=== PATIENT | female | born 1965 | race African-American/Black ===

== ENCOUNTER → 2017-02-14 | Outpatient (CLI) | payer OTHER ==
[~2017-02-14] MED LIST: BENADRYL25 MG PO; LISINOPRIL5 MG PO; NORCO 5-325 TA1 EACH PO; PENICILLIN VK500 MG PO
--- NOTE | ~2017-02-14 | EKG ---
[place] [address] [facility] [place] [address] ELECTROCARDIOGRAM REPORT Name: HEMANTH MORRIS Room #: REG ROBBI Rao#: [id number] Admission: 02/14/17 Attend Phys: Gala Kern DNP Discharge: Date of : 69 Report #: [id number] THIS REPORT FOR: //name// [facility] Test Date: 2017-02-14 Test Time: 10:05:29 Pat Name: HEMANTH MORRIS Department: Room: Gender: F [employer] Manager: Mert GUDINO : 1965 Requested By: Gala Kern Order Number: [id number] MD: Luis Enrique Young Measurements Intervals [place] Rate: 96 P: 57 CO: 125 QRS: 17 QRSD: 86 T: -10 QT: 373 QTc: 472 Interpretive Statements Sinus rhythm Borderline repolarization abnormality No previous ECG available for comparison Electronically Signed On 02-14-2017 14:40:21 CDT by Luis Enrique Young [email or web address] <ELECTRONICALLY SIGNED> By: Luis Enrique Young MD 02/14/17 1440 1005 1005 MD CONNIE Quinn
== END ==
LOC: CV 09:41
DX: R07.9 Chest pain, unspecified (principal)

== ENCOUNTER 2018-06-01 13:05 | Emergency (ER) | payer OTHER ==
[~2018-06-01] VITALS: Ht 160 cm; Wt 102.1 kg
[2018-06-01 14:23] VITALS: BP 178/119
== END 2018-06-01 14:33 | disposition home or self-care (01) ==
LOC: ER 13:05
DX: S61.012A Laceration without foreign body of left thumb without damage to nail, initial encounter (principal); I10 Essential (primary) hypertension; Z88.2 Allergy status to sulfonamides; W26.0XXA Contact with knife, initial encounter; Y92.009 Unspecified place in unspecified non-institutional (private) residence as the place of occurrence of the external cause; Y93.G1 Activity, food preparation and clean up; Y99.8 Other external cause status

== ENCOUNTER 2018-12-31 20:19 | Emergency (ER) | payer OTHER ==
[~2018-12-31] VITALS: Ht 160 cm; Wt 102.1 kg
[2018-12-31] MEDS ORDERED: OMEPRAZOLE40 MG PO (20:45)
[2018-12-31] MEDS ORDERED: NORVASC5 MG PO (20:45)
[2018-12-31 21:08] LABS: URINE BILIRUBIN NEGATIVE (Negative); URINE BLOOD NEGATIVE (Negative); URINE CLARITY CLEAR; URINE COLOR YELLOW; URINE GLUCOSE-RANDOM* NEGATIVE (Negative); URINE KETONES NEGATIVE (Negative); URINE LEUKOCYTES-REFLEX NEGATIVE (Negative); URINE NITRITE-REFLEX NEGATIVE (Negative); URINE PROTEIN (DIPSTICK) NEGATIVE (Negative); URINE SPECIFIC GRAVITY 1.025 (1.005-1.035); URINE UROBILINOGEN 0.2 E.U./dl (0.2-1.0)
[2018-12-31 21:38] VITALS: BP 202/103
== END 2018-12-31 21:41 | disposition left against medical advice (07) ==
LOC: ER 20:19
PROVIDERS: Emergency Medicine
DX: Z53.21 Procedure and treatment not carried out due to patient leaving prior to being seen by health care provider (principal)

== ENCOUNTER → 2019-03-04 | Outpatient (CLI) | payer OTHER ==
[~2019-03-04] MED LIST changes: +NORVASC5 MG PO; +OMEPRAZOLE40 MG PO
== END ==
LOC: RAD 09:48 → ULTRA 09:48
DX: N63.20 Unspecified lump in the left breast, unspecified quadrant (principal)

== ENCOUNTER → 2019-06-10 | Outpatient (CLI) | payer OTHER | LOC: RAD 10:25 | DX: M47.816 Spondylosis without myelopathy or radiculopathy, lumbar region (principal); Z88.2 Allergy status to sulfonamides ==

== ENCOUNTER → 2019-06-24 | Outpatient (CLI) | payer OTHER | LOC: MRI 08:19 | DX: M40.46 Postural lordosis, lumbar region (principal); M51.36 Other intervertebral disc degeneration, lumbar region; M51.34 Other intervertebral disc degeneration, thoracic region; M51.44 Schmorl's nodes, thoracic region; I10 Essential (primary) hypertension; M12.88 Other specific arthropathies, not elsewhere classified, other specified site ==

== ENCOUNTER 2019-09-24 09:22 | Emergency (ER) | payer BC, OTHER ==
[~2019-09-24] VITALS: Ht 160 cm; Wt 102.1 kg
[2019-09-24 09:23] VITALS: BP 204/116
--- NOTE | 2019-09-24 17:26 | EKG ---
[place] [address] [facility] [place] [address] ELECTROCARDIOGRAM REPORT Name: HEMANTH MORRIS [facility] [id number] Admission: 09/24/19 Attend Phys: Discharge: 09/24/19 Date of : 69 Report #: [id number] THIS REPORT FOR: //name// [facility] ED Test Date: 2019-09-24 Test Time: 09:39:11 Pat Name: HEMANTH MORRIS Department: Room: Gender: F Cook Box Filler: PARI : 1965 Requested By: Raymundo Downey Order Number: [id number] MD: Luis Enrique Young Measurements Intervals [place] Rate: 88 P: 47 MS: 127 QRS: 16 QRSD: 91 T: 7 QT: 421 QTc: 510 Interpretive Statements Sinus rhythm Probable left atrial enlargement Compared to ECG 02/14/2017 10:05:29 Electronically Signed On 09-24-2019 17:25:57 [employer]ING [employer]PENTER by Luis Enrique Young [email or web address] <ELECTRONICALLY SIGNED> By: Luis Enrique Young MD 09/24/19 1725 0939 09 MD CONNIE Quinn
== END 2019-09-24 10:17 | disposition home or self-care (01) ==
LOC: ER 09:22
DX: S09.8XXA Other specified injuries of head, initial encounter (principal); I10 Essential (primary) hypertension; Z88.2 Allergy status to sulfonamides; W18.39XA Other fall on same level, initial encounter; Y92.89 Other specified places as the place of occurrence of the external cause; Y93.89 Activity, other specified; Y99.8 Other external cause status

== ENCOUNTER → 2020-12-30 | Outpatient (CLI) | payer BC, OTHER | LOC: ULTRA 08:11 | PROVIDERS: ATTEND Family Medicine | DX: N83.202 Unspecified ovarian cyst, left side (principal); N95.0 Postmenopausal bleeding ==

== ENCOUNTER 2021-03-13 09:41 | Emergency (ER) | payer BC, OTHER ==
[~2021-03-13] VITALS: Ht 160 cm; Wt 95.3 kg
[2021-03-13] MEDS ORDERED: METFORMIN HCL500 M3 PO (09:50)
[2021-03-13] MEDS ORDERED: DOXYCYCLINE 10100 MG PO (10:17)
[2021-03-13 12:35] VITALS: BP 177/97
== END 2021-03-13 12:35 | disposition home or self-care (01) ==
LOC: ER 09:41
DX: S20.162A Insect bite (nonvenomous) of breast, left breast, initial encounter (principal); I10 Essential (primary) hypertension; N61.0 Mastitis without abscess; Z79.84 Long term (current) use of oral hypoglycemic drugs; Z79.891 Long term (current) use of opiate analgesic; Z88.2 Allergy status to sulfonamides; Z72.89 Other problems related to lifestyle; W57.XXXA Bitten or stung by nonvenomous insect and other nonvenomous arthropods, initial encounter; Y93.89 Activity, other specified; Y92.89 Other specified places as the place of occurrence of the external cause; Y99.8 Other external cause status

== ENCOUNTER 2021-03-27 21:11 | Inpatient (IN) | payer BC, OTHER ==
[~2021-03-27] VITALS: Ht 160 cm; Wt 102.1 kg
--- NOTE | ~2021-03-27 | EMS ---
[facility] [address] [place] [address] EMS Patient Care Report Name: HEMANTH MORRIS Room #: REG LADARIUS Yeh#: [id number] Admission: 03/27/21 Attend Phys: Discharge: Date of : 69 Report #: [id number] THIS REPORT FOR: //name// Report Transmitted: 03/27/2021 20:52 EMS Care Summary [facility] MED-ACT Incident 189 @ 03/27/2021 20:37 Incident Location [address] [place] [address] Patient HEMANTH OMRRIS Female, 55 Years 1965 Patient Address [address] [place] [id number] Patient History Hypertension (HTN), Patient Allergies No known allergies, Patient Medications None Reported, Chief Complaint Headache Disposition Transported No Lights/[place] Dispatch Reason Stroke/CVA Transported To [facility] Narrative Pt. states that she was on her way to the hospital for a headache and nausea when she started to develop blurred vision and numbness in her extremities. She was able to pull worker and call for help. She states that her symptoms started around 04:00 hrs this morning with a headache that made her nauseated. [facility] [address] [place] [address] EMS Patient Care Report Name: HEMANTH MORRIS Room #: REG LADARIUS Yeh#: [id number] Admission: 03/27/21 Attend Phys: Discharge: Date of : 69 Report #: [id number] She had a similar problem a few days ago where she thought she may have COVID. She was able to get tested and had a negative result. On her way to the ED this evening is when she started to develop numbness on the left side of her face, left arm, and right foot. She has a hx of hypertension. She denies any recent changes in her medications. She also denies fever, chest pain, dyspnea, vomiting, migraine hx. She has no hx of CVA. No other complaints noted. Arrived to find the pt. seated in the swing driver's seat of her car. She was alert and able to step out of the car and sit on the cot without assistance. Cinn. was inconclusive. Pt. has subjective drift of the left arm but equal rug dyer and face. Her speech was normal. Refer to the exam section for other physical findings. T(x)- monitoring only Outcome: Pt.'s left arm was noted to slip off the cot on occasion. The pt. was alerted to her arm where she was able to raise it up and place it back on the hand rail. No other changes were noted in the pt's condition upon arrival at [place]. Initial Vitals @20:53P: 101,BP: 189/92,SpO2: 98, @21:05P: 94,BP: 163/74,SpO2: 97, @20:53P: 100,SpO2: 98, @20:51P: 103,R: 16,BP: 187/87,Pain: 4/10,GCS: 15,Temp: 97.8F,Glucose: 114,SpO2: 98,Revised Trauma: 12, Assessments @20:50MENTAL:No Abnormalities,SKIN:HEENT:Eyes: Left Pupil: 4-mm,Eyes: Right Pupil: 4-mm,LUNG SOUNDS:General: No Abnormalities,ABDOMEN:General: No Abnormalities,PELVIS//GI:EXTREMITIES:PULSE:NEURO:Weakness Left-Sided, Impression Headache Procedures @20:5312-Lead ECGResponse: UnchangedSucceeded@20:53Saline Lock 8cc (18 ga) Site: Antecubital-RightResponse: UnchangedSucceeded Timeline 20:36,Call Received 20:36,Psap Call 20:37,Dispatched 20:38,En Route 20:42,On Scene 20:43,At Patient [address] [place] [address] EMS Patient Care Report Name: MORRISHEMANTH Room #: REG LADARIUS Yeh#: [id number] Admission: 03/27/21 Attend Phys: Discharge: Date of : 69 Report #: [id number] 20:51,BP: 187/87 M,PULSE: 103,RR: 16 R,SPO2: 98 Ox,ETCO2: ,B,PAIN: 4,GCS: 15, 20:53,Saline Lock 8cc 18 ga Site: Antecubital-Right,Response: UnchangedSucceeded, 20:53,BP: 189/92 M,PULSE: 101,RR: R,SPO2: 98 Ox,ETCO2: ,BG: ,PAIN: ,GCS: , 20:53,12-Lead ECG,Response: UnchangedSucceeded, 20:53,BP: / M,PULSE: 100,RR: R,SPO2: 98 Ox,ETCO2: ,BG: ,PAIN: ,GCS: , 20:57,Depart Scene 21:03,At Destination 21:05,BP: 163/74 M,PULSE: 94,RR: R,SPO2: 97 Ox,ETCO2: ,BG: ,PAIN: ,GCS: , 21:28,Call Closed Disclaimer v1.1 Copyright 2020 [employer] This EMS Care Summary contains data elements from the applicable legal record (which may be displayed differently). It is designed to provide pertinent information for the following purposes: continuity of care, clinical quality, and state data reporting. The complete legal record is available to ED staff and administrators of the receiving hospital in [employer]'s Patient Tracker. All data is provided "as is."
[~2021-03-27 21:11] MED LIST changes: +DOXYCYCLINE 10100 MG PO; +METFORMIN HCL500 M3 PO
[2021-03-27 21:14] VITALS: BP 163/92
[2021-03-27 21:39] LABS: ABSOLUTE NEUTROPHILS 3.5 thou/uL (1.4-8.2); BASOPHILS 0.9 % (0.0-2.0); EOSINOPHILS 0.7 % (0.0-3.0); HEMOGLOBIN 13.1 gm/dL (12.0-15.0); LYMPHOCYTES 37.2 % (24.0-44.0); MCH 27.4 pg (26.0-34.0); MCHC 32.7 g/dL (28.0-37.0); MCV 83.8 fL (80.0-100.0); MONOCYTES 7.4 % (1.0-8.0); PLATELET COUNT 326 thou/uL (150-400); POLYS 53.8 % (36.0-66.0); RBC 4.77 mil/uL (4.20-5.00); RDW 14.1 % (10.5-14.5); WBC 6.5 thou/uL (4.0-11.0)
[2021-03-27 21:51] LABS: ANION GAP 7 mmol/L (7-16); BUN 9 mg/dL (7-18); CALCIUM 8.8 mg/dL (8.5-10.1); CHLORIDE 102 mmol/L (98-107); CO2 28 mmol/L (21-32); GLUCOSE 172 mg/dL (74-106); POTASSIUM 3.6 mmol/L (3.5-5.1); SODIUM 137 mmol/L (136-145)
[2021-03-27 22:02] LABS: ALBUMIN 3.8 g/dL (3.4-5.0); SGOT 28 U/L (15-37); SGPT 29 U/L (14-59); TOTAL BILIRUBIN 0.3 mg/dL (0.2-1.0); TROPONIN-I <0.06 ng/mL (<0.06)
[2021-03-28] VITALS (8 sets, daily range): BP systolic 118–166; BP diastolic 72–80
[2021-03-28] LABS: URINE BILIRUBIN NEGATIVE (Negative); URINE BLOOD 1+ (Negative); URINE CLARITY CLEAR; URINE COLOR YELLOW; URINE GLUCOSE-RANDOM* NEGATIVE (Negative); URINE KETONES NEGATIVE (Negative); URINE LEUKOCYTES-REFLEX TRACE (Negative); URINE NITRITE-REFLEX NEGATIVE (Negative); URINE PROTEIN (DIPSTICK) NEGATIVE (Negative); URINE SPECIFIC GRAVITY <= 1.005 (1.005-1.035); URINE UROBILINOGEN 0.2 E.U./dl (0.2-1.0)
[2021-03-28 00:10] LABS: AMP/METHAMP Negative (Negative); BARBITURATES Negative (Negative); BENZODIAZEPINES Negative (Negative); COCAINE Negative (Negative); METHADONE Negative (Negative); OPIATES Negative (Negative); PCP Negative (Negative)
[2021-03-28 00:39] LABS: SQUAMOUS 4-10 Moderate /LPF (0-3)
[2021-03-28 00:40] LABS: BACTERIA-REFLEX 1-9 Few /HPF (None Seen); CASTS None Seen /LPF (None Seen); CRYSTALS None Seen /LPF (None Seen); MUCUS 0-3 Light strn/LPF (None Seen); URINE RBC 3-10 Few /HPF (NONE SEEN); URINE WBC-REFLEX 0-5 Rare /HPF (0-5)
[2021-03-28 09:02] LABS: CALCIUM 8.5 mg/dL (8.5-10.1); POTASSIUM 4.1 mmol/L (3.5-5.1)
[2021-03-29 00:06] LABS: GLYCOHEMOGLOBIN (HGB A1C) 6.5 % (4.8-5.6)
--- NOTE | 2021-03-29 03:41 | NUR ---
PT IS A/O X4 AND IS UP AD SARITHA. PLEASANT AND COOPERATIVE. VSS. AFEBRILE. PHYSCIAN ORDERED MRI OF THE BRAIN STAT FOLLOWING MRI YESTERDAY. AWAITING RESULTS. C/O HEADACHE. SCHEDULED MEDICATION GIVEN DIRECTED. CALL LIGHT IS WITHIN REACH.
[2021-03-29 04:13] VITALS: BP 135/74
[2021-03-29 07:45] VITALS: BP 133/66
--- NOTE | 2021-03-29 09:34 | NUR ---
ASSESSMENT: CM REVIEWED CHART AND SPOKE WITH ATTENDING. PT WAS ADMITTED DUE TO HAVING HEADACHE AND STROKE LIKE SYMPTOMS. NEUROLOGY WAS CONSULTED AND FOLLOWING PATIENT. SO FAR PATIENTS WORKUP HAS BEEN UNREMARKABLE. PT REPORTS THAT SHE LIVES IN A HOUSE WITH HER CHILD (12 YEAR OLD DAUGHTER). PTS RELATIVES ARE ASSISTING WITH HER DAUGHTER WHILE SHE IS HERE . PT REPORTS HAVING ABOUT 12 STEPS WITH HANDRAILS FROM THE GARAGE INTO MAIN LEVEL OF THE HOME. PT REPORTS SHE IS NORMALLY FULLY INDEPENDENT WITH ADLS AND AMBULATION AND HAS NO DME. PT REPORTS SHE HAS NEVER HAD HH IN THE PAST NOR A POST ACUTE CARE STAY. PTS PCP IS DR. GUILLERMINA CURRY. PT/OT SW PATIENT AND ANTICIPATE SHE WILL BE ABLE TO RETURN HOME WITH NO NEEDS AT D/C. CM WILL CONTINUE TO FOLLOW.
[2021-03-29] MEDS ORDERED: TOPIRAMATE 100100 MG PO (16:12)
[2021-03-29] MEDS ORDERED: CYCLOBENZAPRINE5 MG PO (16:12)
[2021-03-29 16:22] VITALS: BP 135/74
--- NOTE | 2021-03-29 17:06 | NUR ---
RN WENT OVER ALL DICHARGE PAPERWORK, ALL QUESTIONS ANSWERED, IV OUT, AND WHEELED OUT IN WHEELCHAIR TO HOME.
== END 2021-03-29 18:29 | disposition home or self-care (01) | DRG 552 ==
LOC: ER 21:11 → EROBS 03-28 00:08 → 4S 03-28 00:08 → 2N 03-28 00:58 → 4S 03-28 17:44
PROVIDERS: Emergency Medicine; Nurse Practitioner Family; ADMIT Hospitalist; ATTEND Hospitalist
DX: M50.320 Other cervical disc degeneration, mid-cervical region, unspecified level (principal); G95.29 Other cord compression; M51.34 Other intervertebral disc degeneration, thoracic region; M48.02 Spinal stenosis, cervical region; I10 Essential (primary) hypertension; R73.03 Prediabetes; Z88.2 Allergy status to sulfonamides; Z83.3 Family history of diabetes mellitus
CPT/HCPCS: 10102